=== PATIENT | female | born 1950 | race Caucasian/White ===

== ENCOUNTER 2023-01-01 16:01 | Outpatient (CLI) | payer MEDICARE | END 2023-01-01 16:02 | disposition home or self-care (01) | LOC: NAV RAD 16:01 | PROVIDERS: ATTEND Family Medicine | DX: R30.0 Dysuria (principal) | CPT/HCPCS: 74018 ==

== ENCOUNTER 2023-12-07 09:52 | Emergency (ER) | payer MEDICARE, OTHER ==
[2023-12-07] MEDS ORDERED: Acetaminophen 500 MG TAB ONE (11:31)
== END 2023-12-07 11:51 | disposition home or self-care (01) ==
LOC: NAV ERS 09:52
DX: S93.401A Sprain of unspecified ligament of right ankle, initial encounter (principal); S00.93XA Contusion of unspecified part of head, initial encounter; I10 Essential (primary) hypertension; I25.2 Old myocardial infarction; Z79.02 Long term (current) use of antithrombotics/antiplatelets; Z79.82 Long term (current) use of aspirin; W19.XXXA Unspecified fall, initial encounter
CPT/HCPCS: 29515; 70450

== ENCOUNTER 2025-01-15 10:07 | Outpatient (CLI) | payer MEDICARE | END 2025-01-15 10:08 | disposition home or self-care (01) | LOC: NAV RAD 10:07 | PROVIDERS: ATTEND Family Medicine | DX: M25.552 Pain in left hip (principal) ==